=== PATIENT | male | born 1950 | race Caucasian/White ===

== ENCOUNTER → 2017-02-03 09:24 | Outpatient (CLI) | payer MEDICARE, BC ==
[2015-03-17 18:20] VITALS: BMI 31.6
[~2017-02-03 09:24] MED LIST: BAYER CHEWABLE81 MG PO; BYSTOLIC10 MG PO; ELIQUIS2.5 MG PO; GLIPIZIDE10 MG PO; GLUCOTROL XL 5 M5 MG PO; JANUMET XR 1001 EACH PO; LANTUS SOL100 UNIT/1 SQ; LISINOPRIL10 MG PO; LYRICA75 MG PO; MOBIC7.5 MG PO; NORCO 7.5/325 T1 TA1 PO; NORVASC5 MG PO; PERCOCET 10/3251 TA1 PO; PRAVACHOL40 MG PO; SYNTHROID150 MCG PO; ULTRAM50 MG PO; VIMOVO 375-201 EACH PO
[2017-02-04 06:15] LABS: IMMUNOGLOBULIN G 867 mg/dL (700-1600)
[2017-02-08 10:18] LABS: ANTIGLIADIN IGA 5 units (0-19); ANTIGLIADIN IGG 2 units (0-19)
== END | disposition home or self-care (01) ==
LOC: D.LAB 09:24
PROVIDERS: Internal Medicine Gastroenterology
DX: D72.820 Lymphocytosis (symptomatic) (principal)

== ENCOUNTER → 2017-02-16 08:58 | Outpatient (CLI) | payer MEDICARE, BC ==
[2015-03-17 18:20] VITALS: BMI 31.6
== END | disposition home or self-care (01) ==
LOC: D.RAD 08:58
DX: R13.10 Dysphagia, unspecified (principal)

== ENCOUNTER 2019-07-05 08:18 | Inpatient (IN) | payer MEDICARE, BC ==
[~2019-07-05] VITALS: Ht 188 cm; Wt 111.1 kg
[2019-07-05] VITALS (12 sets, daily range): BP systolic 102–135; BP diastolic 56–89; Ht 188 cm; Wt 111.1 kg
[2019-07-05 08:37] LABS: BASOPHILS 0.6 % (0-2); EOSINOPHILS 2.2 % (0-7); HEMATOCRIT 41.4 % (42.0-54.0); HEMOGLOBIN 14.3 g/dL (13.5-17.5); IMMATURE GRANULOCYTES 0.3 % (0-5); LYMPHOCYTES 24.7 % (15-50); MCH 34.7 pg (26.0-34.0); MCHC 34.5 g/dL (31.0-37.0); MCV 100.5 fL (80.0-100.0); MEAN PLATELET VOLUME 9.8 fL (7.4-10.4); MONOCYTES 5.2 % (2-11); PLATELET COUNT 265 10x3/uL (130-400); RBC 4.12 10x6/uL (4.20-6.10); RDW 12.5 % (11.5-14.5); WBC 6.7 10x3/uL (4.8-10.8)
[2019-07-05 08:44] LABS: CALC OSMOLALITY 275 mosm/kg (275-300); CALCIUM 10.1 mg/dL (8.5-10.1); CARBON DIOXIDE 23.3 mmol/L (21.0-32.0); CHLORIDE - SERUM 98 mmol/L (98-107); CREATININE - SERUM 1.8 mg/dL (0.6-1.3); GLUCOSE 90 mg/dL (74-106); POTASSIUM - SERUM 4.7 mmol/L (3.5-5.1); SODIUM 135 mmol/L (136-145); UREA NITROGEN 30 mg/dL (7-18); eGFR NON AFRICAN AMERICAN 40 mL/min (90-120)
[2019-07-05 08:45] LABS: APTT 27.6 SECONDS (22.8-39.4); INR 0.99 (0.85-1.17); PROTIME 13.1 SECONDS (11.6-15.0)
[2019-07-05 08:59] LABS: ALBUMIN 4.3 g/dL (3.4-5.0); ALKALINE PHOSPHATASE 86 U/L (30-120); ALT (SGPT) 51 U/L (10-68); BILIRUBIN - TOTAL 0.48 mg/dL (0.2-1.3); CKMB 3.4 U/L (0.0-3.6); CREATINE KINASE 167 UL (21-232); MAGNESIUM - SERUM 1.4 mg/dL (1.8-2.4); PROTEIN - SERUM 7.5 g/dL (6.4-8.2); THYROID STIMULATING HORMONE 0.29 uIU/mL (0.36-3.74)
[2019-07-05 09:02] LABS: TROPONIN-I < 0.017 ng/mL (0.000-0.060)
--- NOTE | 2019-07-05 09:09 | NUR ---
RTN FROM CT. RESTING COMFORTABLY IN BED. NO C/O
--- NOTE | 2019-07-05 09:59 | NUR ---
REPORT CALLED TO FLAQUITO YOUNG
[2019-07-05] MEDS ORDERED: LOPRESSOR25 MG PO (10:36)
[2019-07-05] MEDS ORDERED: GLUCOTROL 5 MG T5 MG PO (10:36)
[2019-07-05] MEDS ORDERED: GLUCOPHAGE1000 MG PO (10:36)
[2019-07-05] MEDS ORDERED: MOBIC7.5 MG PO (10:37)
[2019-07-05] MEDS ORDERED: IBUPROFEN800 MG PO (10:38)
[2019-07-05] MEDS ORDERED: PEPCID AC20 MG PO (10:38)
[2019-07-05] MEDS ORDERED: LIPITOR20 MG PO (10:38)
[2019-07-05] MEDS ORDERED: LEVOTHYROXINE150 MCG PO (10:39)
--- NOTE | 2019-07-05 19:35 | NUR ---
EVENING ROUNDS COMPLETED. AAOX4, ASSIST PT UP TO RESTROOM, PT HR WENT UP 140'S A-FIB. OTHERWISE AFVSS. PT DENIES PAIN OR SOB. PT DENIES ANY FURTHER NEEDS AT THIS TIME. WILL CTM.
[2019-07-06] VITALS: BP 120/76
[2019-07-06 04:23] LABS: BASOPHILS 0.8 % (0-2); HEMATOCRIT 37.2 % (42.0-54.0); HEMOGLOBIN 12.5 g/dL (13.5-17.5); IMMATURE GRANULOCYTES 0.2 % (0-5); LYMPHOCYTES 24.4 % (15-50); MCH 34.5 pg (26.0-34.0); MCHC 33.6 g/dL (31.0-37.0); MEAN PLATELET VOLUME 9.7 fL (7.4-10.4); MONOCYTES 8.1 % (2-11); NEUTROPHILS 61.5 % (40-80); RBC 3.62 10x6/uL (4.20-6.10); RDW 12.9 % (11.5-14.5)
[2019-07-06 04:29] LABS: MCV 102.8 fL (80.0-100.0); PLATELET COUNT 169 10x3/uL (130-400); WBC 4.8 10x3/uL (4.8-10.8)
[2019-07-06 04:37] LABS: ANION GAP 14.1 mmol/L (8-16); CALCIUM 8.8 mg/dL (8.5-10.1); CARBON DIOXIDE 24.1 mmol/L (21.0-32.0); CREATININE - SERUM 1.5 mg/dL (0.6-1.3); MAGNESIUM - SERUM 1.6 mg/dL (1.8-2.4)
[2019-07-06 05:01] LABS: POTASSIUM - SERUM 5.2 mmol/L (3.5-5.1)
[2019-07-06 08:48] VITALS: BP 151/86
--- NOTE | 2019-07-06 10:17 | MORECARE ---
CASE MANAGEMENT DISCHARGE SUMMARY PATIENT: ELVIN FUENTES UNIT: [id number] ADM DATE: 07/05/19 AGE: 68 : 49 SEX: M ROOM/BED: D.6944 AUTHOR: ODALIS,DOC PHYSICIAN: REFERRING PHYSICIAN: ANISH ESPINOZA MD DATE OF SERVICE: 07/06/19 Discharge Plan Patient Name: ELVIN FUENTES Facility: [facility]:[place] : 1950 Planned Disposition: Home Anticipated Discharge Date: Discharge Date: Expected LOS: Initial Reviewer: [id number] Initial Review Date: 07/06/2019 Generated: 07/06/19 11:17 am Comments DCP- Discharge Planning Updated by [id number]: Krzysztof Brand on 07/06/19 9:[address] Patient Name: ELVIN FUENTES Admission Status: ER Accout number: [id number] Admission Date: 07-05-2019 : 1950 Admission Diagnosis: Attending: ANISH ESPINOZA Current LOS: 1 Anticipated DC Date: Planned Disposition: Home Primary Insurance: MEDICARE A & B Discharge Planning Comments: CM MET WITH PT IN ROOM TO DISCUSS DISCHARGE PLANNING AND NEEDS. PT REPORTS LIVING AT HOME INDEPENDENTLY AND ALONE. PT HAS CANE AND WALKER WITH NO MEDICAL EQUIPMENT PROVIDER PREFERNCE. PT HAS NO OUTSIDE SERVICES ASSISTING IN THE HOME. CM DISCUSSED AVAILABILITY OF HOME HEALTH, REHAB SERVICES AND MEDICAL EQUIPMENT. PT DENIES DISCHARGE NEEDS, REPORTS HIS EX WILL PICK HIM UP FOR DISCHARGE HOME. PT PLANS TO DISCHARGE HOME ALONE, HAS NO ANTICIPATED DISCHARGE NEEDS, FAMILY TO TRANSPORT HOME AT DISCHARGE. CM TO FOLLOW AND ASSIST IF NEEDED. Therapeutic Recreation Director: Krzysztof Brand DCPIA - Discharge Planning Initial Assessment Updated by [email or web address]: Krzysztof Brand on 07/06/19 10:12 am * Is the patient Alert and Oriented? Yes * How many steps to enter\exit or inside your home? * PCP DR. MCKINNON * Pharmacy [facility] [address] * Preadmission Environment Home Alone * ADLs Independent * Equipment Cane Walker * Other Equipment NO MEDICAL EQUIPMENT PROVIDER PREFERENCE * List name and contact numbers for known caregivers / representatives who currently or will assist patient after discharge: SUZY FUENTES, EX SPOUSE, * Verbal permission to speak to the caregivers and representatives has been obtained from the patient. N/A * Community resources currently utilized None * Please name any agencies selected above. NONE * Additional services required to return to the preadmission environment? No * Can the patient safely return to the preadmission environment? Yes * Has this patient been hospitalized within the prior 30 days at any hospital? No Patient Name: ELVIN FUENTES Page [id number] at 1017 All edits/amendments must be made on the electronic document DICTATION DATE: 07/06/19 1017 MAINTENANCE MECHANIC TELEPHONE: RAYMOND 07/06/19 1017 RPT#: [id number] DC DATE: STATUS: ADM IN [facility] [address] [place] [address] END OF REPORT
--- NOTE | 2019-07-06 10:31 | MORECARE ---
CASE MANAGEMENT DISCHARGE SUMMARY PATIENT: ELVIN FUENTES UNIT: [id number] ADM DATE: 07/05/19 AGE: 68 : 49 SEX: M ROOM/BED: D.0864 AUTHOR: ODALIS,DOC PHYSICIAN: REFERRING PHYSICIAN: ANISH ESPINOZA MD DATE OF SERVICE: 07/06/19 Discharge Plan Patient Name: ELVIN FUENTES Facility: [facility]:[place] : 1950 Planned Disposition: Home Anticipated Discharge Date: Discharge Date: Expected LOS: Initial Reviewer: [id number] Initial Review Date: 07/06/2019 Generated: 07/06/19 11:31 am Comments DCP- Discharge Planning Updated by [email or web address]: Krzysztof Brand on 07/06/19 9:[address] Patient Name: ELVIN FUENTES Admission Status: ER Accout number: [id number] Admission Date: 07-05-2019 : 1950 Admission Diagnosis: Attending: ANISH ESPINOZA Current LOS: 1 Anticipated DC Date: Planned Disposition: Home Primary Insurance: MEDICARE A & B Discharge Planning Comments: CM MET WITH PT IN ROOM TO DISCUSS DISCHARGE PLANNING AND NEEDS. PT REPORTS LIVING AT HOME INDEPENDENTLY AND ALONE. PT HAS CANE AND WALKER WITH NO MEDICAL EQUIPMENT PROVIDER PREFERNCE. PT HAS NO OUTSIDE SERVICES ASSISTING IN THE HOME. CM DISCUSSED AVAILABILITY OF HOME HEALTH, REHAB SERVICES AND MEDICAL EQUIPMENT. PT DENIES DISCHARGE NEEDS, REPORTS HIS EX WILL PICK HIM UP FOR DISCHARGE HOME. PT PLANS TO DISCHARGE HOME ALONE, HAS NO ANTICIPATED DISCHARGE NEEDS, FAMILY TO TRANSPORT HOME AT DISCHARGE. CM TO FOLLOW AND ASSIST IF NEEDED. Pallet Assembler: Krzysztof Brand DCPIA - Discharge Planning Initial Assessment Updated by [id number]: Krzysztof Brand on 07/06/19 10:12 am * Is the patient Alert and Oriented? Yes * How many steps to enter\exit or inside your home? * PCP DR. MCKINNON * Pharmacy [facility] [address] * Preadmission Environment Home Alone * ADLs Independent * Equipment Cane Walker * Other Equipment NO MEDICAL EQUIPMENT PROVIDER PREFERENCE * List name and contact numbers for known caregivers / representatives who currently or will assist patient after discharge: SUZY FUENTES, EX SPOUSE, * Verbal permission to speak to the caregivers and representatives has been obtained from the patient. N/A * Community resources currently utilized None * Please name any agencies selected above. NONE * Additional services required to return to the preadmission environment? No * Can the patient safely return to the preadmission environment? Yes * Has this patient been hospitalized within the prior 30 days at any hospital? No Last DP export: 07/06/19 9:17 a Patient Name: ELVIN FUENTES Page [id number] at 1031 All edits/amendments must be made on the electronic document DICTATION DATE: 07/06/19 1031 ADULT REMEDIAL EDUCATION INSTRUCTOR: RAYMOND 07/06/19 1031 RPT#: [id number] DC DATE: STATUS: ADM IN [facility] [address] [place] [address] END OF REPORT
--- NOTE | 2019-07-06 12:09 | NUR ---
PT REFUES TO WEAR SCDs
[2019-07-06 17:01] VITALS: BP 147/93
--- NOTE | 2019-07-06 19:30 | NUR ---
REPORT RECIEVED AND INITIAL ROUNDS COMPLETED. PT ALERT/ORIENTED AND RESTING IN BED. NONLABORED RESPIRATIONS ON ROOM AIR. IV TO LEFT FOREARM WITH NS @ 100ML/HR AND CARDIZEM AT 5ML/HR. ALSO HAS PIV TO RIGHT A/C THAT IS SALINE LOCKED. CAF/70'S PER TELEMETRY. INSTRUCT ON NPO AFTER MIDNIGHT FOR CARDIOLYTE STRESS TEST IN AM. CALL LIGHT IN REACH. CPOC.
[2019-07-06 21:00] VITALS: BP 157/92
--- NOTE | 2019-07-06 22:00 | NUR ---
ALL BEDTIME MEDS GIVEN. PT REFUSED FSBS. STATES HE KNOWS IF HE NEEDS TO BE CHECKED AND HE IS OK. IVF INFUSING. CARDIZEM DRIP INFUSING. CAF 72 PER TELEMETRY.
--- NOTE | 2019-07-07 07:15 | NUR ---
RECEIVED PT IN BED AAOX4 RESP UNLABORED SKIN W/D COLOR WNL DENIES ANY PAIN OR NEEDS AT THIS TIME NAD NOTED
[2019-07-07 10:41] VITALS: BP 110/56
[2019-07-07] MEDS ORDERED: ELIQUIS5 MG PO (11:45)
[2019-07-07] MEDS ORDERED: LEVOTHYROXINE100 MCG PO (11:46)
[2019-07-07 12:22] VITALS: BP 148/81
--- NOTE | 2019-07-07 13:50 | NUR ---
REVIEWED DISCHARGE INSTRUCTIONS WITH PT STATES UNDERSTANDING COPY GIVEN DCD SALINE LOCKS TO RAC AND LAC WITH IV CATHETERS INTACT SITES WITH NO REDNESS OR EDEMA PT DISCHARGED HOME IN STABLE CONDITION WITH ALL PERSONAL BELONGINGS LEFT UNIT VIA W/C
--- NOTE | 2019-07-07 16:12 | MORECARE ---
CASE MANAGEMENT DISCHARGE SUMMARY PATIENT: ELVIN FUENTES UNIT: [id number] ADM DATE: 07/05/19 AGE: 68 : 49 SEX: M ROOM/BED: D.2114 AUTHOR: ODALIS,DOC PHYSICIAN: REFERRING PHYSICIAN: ANISH ESPINOZA MD DATE OF SERVICE: 07/07/19 Discharge Plan Patient Name: ELVIN FUENTES Facility: [facility]:[place] : 1950 Planned Disposition: Home Anticipated Discharge Date: Discharge Date: 07/07/2019 Expected LOS: Initial Reviewer: [id number] Initial Review Date: 07/06/2019 Generated: 07/07/19 5:12 pm Comments DCP- Discharge Planning Updated by [email or web address]: Kayleen Ware on 07/07/19 3:[address] Patient Name: ELVIN FUENTES Encounter No: [id number] : 1950 Primary Insurance: MEDICARE A & B Anticipated DC Date: Planned Disposition: Home External Planned Provider: : DCP follow-up note: PT PLANS TO DISCHARGE HOME ALONE, HAS NO ANTICIPATED DISCHARGE NEEDS, FAMILY TO TRANSPORT HOME AT DISCHARGE. Kayleen Ware MSN,RN,CM DCP- Discharge Planning Updated by [id number]: Krzysztof Brand on 07/06/19 9:[address] Patient Name: ELVIN FUENTES Admission Status: ER Accout number: [id number] Admission Date: 07-05-2019 : 1950 Admission Diagnosis: Attending: ANISH ESPINOZA Current LOS: 1 Anticipated DC Date: Planned Disposition: Home Primary Insurance: MEDICARE A & B Discharge Planning Comments: CM MET WITH PT IN ROOM TO DISCUSS DISCHARGE PLANNING AND NEEDS. PT REPORTS LIVING AT HOME INDEPENDENTLY AND ALONE. PT HAS CANE AND WALKER WITH NO MEDICAL EQUIPMENT PROVIDER PREFERNCE. PT HAS NO OUTSIDE SERVICES ASSISTING IN THE HOME. CM DISCUSSED AVAILABILITY OF HOME HEALTH, REHAB SERVICES AND MEDICAL EQUIPMENT. PT DENIES DISCHARGE NEEDS, REPORTS HIS EX WILL PICK HIM UP FOR DISCHARGE HOME. PT PLANS TO DISCHARGE HOME ALONE, HAS NO ANTICIPATED DISCHARGE NEEDS, FAMILY TO TRANSPORT HOME AT DISCHARGE. CM TO FOLLOW AND ASSIST IF NEEDED. Video Journalist: Krzysztof Brand DCPIA - Discharge Planning Initial Assessment Updated by [id number]: Krzysztof Brand on 07/06/19 10:12 am * Is the patient Alert and Oriented? Yes * How many steps to enter\exit or inside your home? * PCP DR. MCKINNON * Pharmacy [facility] ON [address] * Preadmission Environment Home Alone * ADLs Independent * Equipment Cane Walker * Other Equipment NO MEDICAL EQUIPMENT PROVIDER PREFERENCE * List name and contact numbers for known caregivers / representatives who currently or will assist patient after discharge: SUZY FUENTES, EX SPOUSE, * Verbal permission to speak to the caregivers and representatives has been obtained from the patient. N/A * Community resources currently utilized None * Please name any agencies selected above. NONE * Additional services required to return to the preadmission environment? No * Can the patient safely return to the preadmission environment? Yes * Has this patient been hospitalized within the prior 30 days at any hospital? No Last DP export: 07/06/19 9:31 a Patient Name: ELVIN FUENTES Page [id number] at 1612 All edits/amendments must be made on the electronic document DICTATION DATE: 07/07/19 1612 BARREL CHARRER HELPER: RAYMOND 07/07/19 1612 RPT#: [id number] DC DATE:07/07/19 STATUS: DIS IN [facility] [address] [place] [address] END OF REPORT
--- NOTE | 2019-07-08 17:43 | ST ---
PATIENT:ELVIN FUENTES MEDICAL RECORD: [id number] SEX: M [facility] #: ADMISSION DATE: 07/05/19 AGE OF PATIENT: 68 REFERRING PHYSICIAN: INTERPRETING PHYSICIAN: MARCELLA MCWILLIAMS MD DATE OF SERVICE: 07/07/2019 PROCEDURE: Lexiscan directed nuclear stress test. PROCEDURE IN DETAIL: The patient was brought into the nuclear catheterization lab. Placed in a supine position on the catheterization table. The patient then had Lexiscan administered per standard protocol. We monitored the patient's rhythm and blood pressure during the procedure. The patient tolerated the procedure without complications. FINDINGS: The patient's ejection fraction is 40% to 45%. No distinct wall motion abnormalities. There was a mild apical lateral defect that was mild in intensity and [id number] in distribution. This was reversible. IMPRESSION: Abnormal nuclear stress test with mild cardiomyopathy with ejection fraction 40% to 45%. RECOMMENDATIONS: At this point in time, depending on clinical situation, medical therapy would be reasonable, symptom directed. Aggressive secondary risk factor modification. Aggressive rate control given the patient is in AFib. Heart failure management. ANA inhibitor and beta blockers. Depending on clinical situation, the patient has considerable angina and is not controlled with medical management, it may be reasonable to consider catheter directed angiography. TRANSINT:[id number] Voice Confirmation ID: [id number] DOCUMENT ID: [id number] MARCELLA MCWILLIAMS MD at 1743 CC: [id number] DICTATION DATE: 07/07/19 1038 FUMIGATOR AND STERILIZER: 07/07/19 1755 DIS IN 07/07/19 [place] [id number] [place] [id number]
--- NOTE | 2019-07-09 08:57 | MORECARE ---
CASE MANAGEMENT DISCHARGE SUMMARY PATIENT: ELVIN FUENTES UNIT: [id number] ADM DATE: 07/05/19 AGE: 68 : 49 SEX: M ROOM/BED: D.2114 AUTHOR: ODALIS,DOC PHYSICIAN: REFERRING PHYSICIAN: ANISH ESPINOZA MD DATE OF SERVICE: 07/09/19 Discharge Plan Patient Name: ELVIN FUENTES Facility: [facility]:[place] : 1950 Planned Disposition: Home Anticipated Discharge Date: Discharge Date: 07/07/2019 Expected LOS: Initial Reviewer: [id number] Initial Review Date: 07/06/2019 Generated: 07/09/19 9:57 am Comments DCP- Discharge Planning Updated by [email or web address]: Kayleen Ware on 07/09/19 7:[address] Patient Name: ELVIN FUENTES Encounter No: [id number] : 1950 Primary Insurance: MEDICARE A & B Anticipated DC Date: Planned Disposition: Home External Planned Provider: : DCP follow-up note: PT PLANS TO DISCHARGE HOME ALONE, HAS NO ANTICIPATED DISCHARGE NEEDS, FAMILY TO TRANSPORT HOME AT DISCHARGE. DCC IMM provided. Signed copy placed on chart. Kayleen Ware MSN,RN,CM DCP- Discharge Planning Updated by [id number]: Krzysztof Brand on 07/06/19 9:[address] Patient Name: ELVIN FUENTES Admission Status: ER Accout number: [id number] Admission Date: 07-05-2019 : 1950 Admission Diagnosis: Attending: ANISH ESPINOZA Current LOS: 1 Anticipated DC Date: Planned Disposition: Home Primary Insurance: MEDICARE A & B Discharge Planning Comments: CM MET WITH PT IN ROOM TO DISCUSS DISCHARGE PLANNING AND NEEDS. PT REPORTS LIVING AT HOME INDEPENDENTLY AND ALONE. PT HAS CANE AND WALKER WITH NO MEDICAL EQUIPMENT PROVIDER PREFERNCE. PT HAS NO OUTSIDE SERVICES ASSISTING IN THE HOME. CM DISCUSSED AVAILABILITY OF HOME HEALTH, REHAB SERVICES AND MEDICAL EQUIPMENT. PT DENIES DISCHARGE NEEDS, REPORTS HIS EX WILL PICK HIM UP FOR DISCHARGE HOME. PT PLANS TO DISCHARGE HOME ALONE, HAS NO ANTICIPATED DISCHARGE NEEDS, FAMILY TO TRANSPORT HOME AT DISCHARGE. CM TO FOLLOW AND ASSIST IF NEEDED. Professional Engineer: Krzysztof Brand DCPIA - Discharge Planning Initial Assessment Updated by [email or web address]: Krzysztof Brand on 07/06/19 10:12 am * Is the patient Alert and Oriented? Yes * How many steps to enter\exit or inside your home? * PCP DR. MCKINNON * Pharmacy [facility] ON [address] * Preadmission Environment Home Alone * ADLs Independent * Equipment Cane Walker * Other Equipment NO MEDICAL EQUIPMENT PROVIDER PREFERENCE * List name and contact numbers for known caregivers / representatives who currently or will assist patient after discharge: SUZY FUENTES, EX SPOUSE, * Verbal permission to speak to the caregivers and representatives has been obtained from the patient. N/A * Community resources currently utilized None * Please name any agencies selected above. NONE * Additional services required to return to the preadmission environment? No * Can the patient safely return to the preadmission environment? Yes * Has this patient been hospitalized within the prior 30 days at any hospital? No Last DP export: 07/07/19 3:12 p Patient Name: ELVIN FUENTES Page 12208 at 0857 All edits/amendments must be made on the electronic document DICTATION DATE: 07/09/19856 BENCH MECHANIC: RAYMOND 07/09/19856 RPT#: [id number] DC DATE:07/07/19 STATUS: DIS IN [facility] [address] [place] [address] END OF REPORT
--- NOTE | 2019-07-09 09:05 | MORECARE ---
CASE MANAGEMENT DISCHARGE SUMMARY PATIENT: ELVIN FUENTES UNIT: [id number] ADM DATE: 07/05/19 AGE: 68 : 49 SEX: M ROOM/BED: D.2114 AUTHOR: ODALIS,DOC PHYSICIAN: REFERRING PHYSICIAN: ANISH ESPINOZA MD DATE OF SERVICE: 07/09/19 Discharge Plan Patient Name: ELVIN FUENTES Facility: [facility]:[place] : 1950 Planned Disposition: Home Anticipated Discharge Date: Discharge Date: 07/07/2019 Expected LOS: Initial Reviewer: [id number] Initial Review Date: 07/06/2019 Generated: 07/09/19 10:04 am Comments DCP- Discharge Planning Updated by [email or web address]: Kayleen Ware on 07/09/19 7:[address] Patient Name: ELVIN FUENTES Encounter No: [id number] : 1950 Primary Insurance: MEDICARE A & B Anticipated DC Date: Planned Disposition: Home External Planned Provider: : DCP follow-up note: PT PLANS TO DISCHARGE HOME ALONE, HAS NO ANTICIPATED DISCHARGE NEEDS, FAMILY TO TRANSPORT HOME AT DISCHARGE. DCC IMM provided. Signed copy placed on chart. Kayleen Ware MSN,RN,CM DCP- Discharge Planning Updated by [id number]: Krzysztof Brand on 07/06/19 9:[address] Patient Name: ELVIN FUENTES Admission Status: ER Accout number: [id number] Admission Date: 07-05-2019 : 1950 Admission Diagnosis: Attending: ANISH ESPINOZA Current LOS: 1 Anticipated DC Date: Planned Disposition: Home Primary Insurance: MEDICARE A & B Discharge Planning Comments: CM MET WITH PT IN ROOM TO DISCUSS DISCHARGE PLANNING AND NEEDS. PT REPORTS LIVING AT HOME INDEPENDENTLY AND ALONE. PT HAS CANE AND WALKER WITH NO MEDICAL EQUIPMENT PROVIDER PREFERNCE. PT HAS NO OUTSIDE SERVICES ASSISTING IN THE HOME. CM DISCUSSED AVAILABILITY OF HOME HEALTH, REHAB SERVICES AND MEDICAL EQUIPMENT. PT DENIES DISCHARGE NEEDS, REPORTS HIS EX WILL PICK HIM UP FOR DISCHARGE HOME. PT PLANS TO DISCHARGE HOME ALONE, HAS NO ANTICIPATED DISCHARGE NEEDS, FAMILY TO TRANSPORT HOME AT DISCHARGE. CM TO FOLLOW AND ASSIST IF NEEDED. Help Desk Support: Krzysztof Brand DCPIA - Discharge Planning Initial Assessment Updated by [email or web address]: Krzysztof Brand on 07/06/19 10:12 am * Is the patient Alert and Oriented? Yes * How many steps to enter\exit or inside your home? * PCP DR. MCKINNON * Pharmacy [facility] ON [address] * Preadmission Environment Home Alone * ADLs Independent * Equipment Cane Walker * Other Equipment NO MEDICAL EQUIPMENT PROVIDER PREFERENCE * List name and contact numbers for known caregivers / representatives who currently or will assist patient after discharge: SUZY FUENTES, EX SPOUSE, * Verbal permission to speak to the caregivers and representatives has been obtained from the patient. N/A * Community resources currently utilized None * Please name any agencies selected above. NONE * Additional services required to return to the preadmission environment? No * Can the patient safely return to the preadmission environment? Yes * Has this patient been hospitalized within the prior 30 days at any hospital? No Coverage Notice Reviewer: [id number] Isis Ware Notice Issued Date-Time: 07/07/2019 13:00 Notice Type: IM Discharge Notice Notice Delivered To: Patient Relationship to Patient: Bird Tender Name: Delivery Method: HAND - Hand Delivered [place] Days: Prior Verbal Notification: Recipient Understood Notice: Yes Recipient Signature: Yes Med Rec Note Co-signed by Attending: Coverage Notice Comment: Last DP export: 07/09/19 7:57 a Patient Name: ELVIN FUENTES Page 25702 at 0905 All edits/amendments must be made on the electronic document DICTATION DATE: 07/09/19903 THERAPEUTIC RECREATION ASSISTANT: RAYMOND 07/09/19903 RPT#: [id number] DC DATE:07/07/19 STATUS: DIS IN [facility] [address] [place] [address] END OF REPORT
== END 2019-07-07 13:10 | disposition home or self-care (01) | DRG 69 ==
LOC: D.ER 08:18 → D.M2 09:25
PROVIDERS: Emergency Medicine; ADMIT Internal Medicine Nephrology; ATTEND Internal Medicine Nephrology
DX: G45.9 Transient cerebral ischemic attack, unspecified (principal); I48.19 Other persistent atrial fibrillation; N17.9 Acute kidney failure, unspecified; E87.1 Hypo-osmolality and hyponatremia; F17.203 Nicotine dependence unspecified, with withdrawal; E83.42 Hypomagnesemia; E03.9 Hypothyroidism, unspecified; E11.42 Type 2 diabetes mellitus with diabetic polyneuropathy; E78.5 Hyperlipidemia, unspecified

== ENCOUNTER 2019-09-11 11:20 | Outpatient (CLI) | payer MEDICARE, BC ==
[~2019-09-11] VITALS: Ht 188 cm; Wt 107.7 kg
--- NOTE | ~2019-09-11 | HEMODYNAMI ---
PATIENT:ELVIN FUENTES MEDICAL RECORD: [id number] : 48 LOCATION:[facility] ADMISSION DATE: 09/11/19 Generatedon:09/11/201916:16 Patient name: ELVIN FUENTES Patient #: [id number] SSN: : [birth year] Date of study: 09/11/2019 Page: Of Hemodynamic Procedure Report Patient Data Patient Demographics Procedure consent was obtained First Name: ELVIN Gender: Male Last Name: ALFREDO : 1950 [facility] Initial: E Age: 68 year(s) Patient #: [id number] Race: Unknown Ethnicity: or Additional ID: [id number] Contact details Address: [address] [address] State: [place] City: [place] Zip code: [address] Past Medical History Allergies: No known allergies Admission Admission Data Admission Date: 09/11/2019 Admission Time: 11:20 Arrival Date: 09/11/2019 Arrival Time: 0:00 Height (in.): 73.62 BSA: 2.33 (m2) Height (cm.): 187 BMI: 30.88 (kg/m2) Weight (lbs.): 238.1 Weight (kg.): 108 Lab Results Lab Result Date: 09/11/2019 Lab Result Time: 0:00 Biochemistry Name Units Result Min Max BUN mg/dl 39 --(----)-* 7 18 Creatinine mg/dl 2.2 --(----)-* 0.6 1.3 CBC Name Units Result Min Max Hematocrit % 41.4 -*(----)-- 42 54 Hemoglobin g/dl 14.2 --(*---)-- 13.5 17.5 Procedure Procedure Types Cath Procedure Diagnostic Procedure PPM/ICD PPM Dual Implant Sedation Charges Moderate Sedation up to 30 minutes Procedure Description Procedure Date Procedure Date: 09/11/2019 Procedure Start Time: 15:41 Procedure End Time: 16:12 Procedure Staff Name Function Chance Tavarez MD Performing Physician Willie Deleon MD Assisting physician Roseanne Cedeño RT Monitor Kate Marie RT Scrub Madelaine Cruz RN Nurse Procedure Data Cath Procedure Fluoroscopy Diagnostic fluoroscopy Total fluoroscopy Time: 1.4 time: 1.4 min min Diagnostic fluoroscopy Total fluoroscopy dose: 0 dose: 0 mGy mGy Estimated blood loss: 10 ml Procedure Complications No complications Procedure Medications Medication Administration Route Dosage 0.9% NaCl I.V. 100 ml/hr Oxygen etCO2 Nasal cannula 2 l/min Lidocaine 1% added to field 20 Ancef (1Gm/50ml NS) I.V.P.B 1 g Ancef Irrigation Topical 1 g (1gm/500ml NS) Versed I.V. 2 mg Fentanyl I.V. 50 mcg Versed I.V. 2 mg Fentanyl I.V. 50 mcg Hemodynamics Rest BSA: 2.33 (m2) HGB: 14.2 (g/dl) O2 Consumption: Estimated: 310.81 (ml/min) O2 Co nsumption indexed: Estimated:133.39 (ml/min/m) Heart Rate: 117 (bpm) Snapshots Pre Cath Intra NCS Post Cath Vital Signs Time Heart Resp SPO2 etCO2 NIBP (mmHg) Rhythm Pain Sedation Rate (ipm) (%) (mmHg) Status Level (bpm) 15:22:50 109 17 97 29 Measuring A-Flutter 0 (11) 10(A) , No pain 15:23:34 104 19 98 29 143/104(129) A-Flutter 0 (11) 10(A) , No pain 15:27:43 110 18 96 29.2 133/101(121) A-Flutter 0 (11) 10(A) , No pain 15:31:49 104 20 98 31.5 131/96(104) A-Flutter 0 (11) 10(A) , No pain 15:35:53 105 15 97 31.5 139/96(112) A-Flutter 0 (11) 10(A) , No pain 15:39:54 90 17 98 32.3 129/96(111) A-Flutter 0 (11) 10(A) , No pain 15:44:00 121 23 98 31.5 124/92(106) A-Flutter 0 (11) 10(A) , No pain 15:48:04 109 18 97 32.3 118/88(99) A-Flutter 0 (11) 10(A) , No pain 15:52:08 113 17 97 36.8 137/89(110) A-Flutter 0 (11) 9(A) , No pain 15:56:16 118 19 97 30.8 124/97(107) A-Flutter 0 (11) 9(A) , No pain 16:00:19 115 16 98 30.8 129/92(109) A-Flutter 0 (11) 9(A) , No pain 16:04:25 118 17 97 30.8 134/93(107) A-Flutter 0 (11) 10(A) , No pain 16:08:33 118 16 94 33 132/87(95) A-Flutter 0 (11) 10(A) , No pain 16:12:39 112 18 96 28.5 144/96(115) A-Flutter 0 (11) 10(A) , No pain Medications Time Medication Route Dose Verified Delivered Reason Notes Effectiv eness by by 15:21:12 0.9% NaCl I.V. 100 Chance Madelaine used for ml/hr Corby Anthony procedure MD [place] 15:21:18 Oxygen etCO2 2 Chance Madelaine used for Nasal l/min Corby Anthony procedure cannula MD [place] 15:21:27 Lidocaine added 20ml Willie Tapia for local 1% to vial Pancho Deleon MD anesthetic field x 2 15:21:37 Ancef I.V.P.B 1 g Willie Zavaleatyla used for (1Gm/50ml Pancho Anthony procedure NS) MD [place] 15:21:48 Ancef Topical 1 g Willie Madelaine used for Irrigation Pancho Anthony procedure (1gm/500ml MD [place] NS) 15:41:28 Versed I.V. 2 mg Chance Madelaine for Corby Anthony sedation MD [place] 15:42:01 Fentanyl I.V. 50 Chance Madelaine for mcg Corby Anthony sedation MD [place] 15:48:47 Versed I.V. 2 mg Chance Madelaine for Corby Anthony sedation MD [place] 15:48:55 Fentanyl I.V. 50 Chance Zavaletayla for mcg Corby Anthony sedation MD [facility]corporate secretary Log Time Note 15:03:38 Informed consent obtained and on chart 15:04:06 Procedure Status PPM/ Gen Change/ Lead Revision/ Temp. 15:04:17 Madelaine Cruz RN sent for patient. Start room use. 15:04:18 Time tracking: Regular hours (M-F 7:00 - 5:00) 15:04:21 Plan of Care:Hemodynamics will remain stable., Cardiac rhythm will remain stable., Comfort level will be maintained., Respiratory function will remain adequate., Patient/ family verbilizes understanding of procedure., Procedure tolerated without complication., Recovers from procedure without complications.. 15:06:06 H&P Date Dictated: 09/06/2019 Within 30 days and on chart., H&P Addendum completed by physician on day of procedure. (MUST COMPLETE FOR ALL OUTPATIENTS). 15:07:07 Patient allergic to No known allergies 15:08:31 Patient Weight : 238.1 lbs 15:08:35 Patient Height : 73.62 inches 15:08:40 Arrival Date: 09/11/2019 12:00:00 AM 15:13:59 Patient received from Pre/Post Procedure Room to [facility] 3 Alert and oriented. Tansferred to table in Supine position. 15:14:00 Warm blankets applied, and funmi hugger turned on for patient comfort. 15:14:00 Correct patient and procedure confirmed by team. 15:14:01 ECG and BP/O2 sat monitors applied to patient. 15:21:01 Vital chart was started 15:21:12 0.9% NaCl 100 ml/hr I.V. was administered by Madelaine Cruz RN; used for procedure; Verbal order read back and verified. 15:21:18 Oxygen 2 l/min etCO2 Nasal cannula was administered by Madelaine Cruz RN; used for procedure; Verbal order read back and verified. 15:21:27 Lidocaine 1% 20ml vial x 2 added to field was administered by Willie Deleon MD; for local anesthetic; Verbal order read back and verified. 15:21:37 Ancef (1Gm/50ml NS) 1 g I.V.P.B was administered by Madelaine Cruz RN; used for procedure; Verbal order read back and verified. 15:21:48 Ancef Irrigation (1gm/500ml NS) 1 g Topical was administered by Madelaine Cruz RN; used for procedure; Verbal order read back and verified. 15::53 Baseline sample Acquired. 15:24:00 Rhythm: atrial fibrillation 15:24:01 Full Disclosure recording started 15:24:02 Pre-procedure instructions explained to patient. 15:24:02 Pre-op teaching completed and patient verbalized understanding. 15:24:04 Family in patients room. 15:24:05 Patient NPO since Midnight. 15:24:07 Is the patient allergic to Iodine/contrast media? No. 15:24:09 Is patient on blood thinner?Yes 15:24:34 ELIQUIS HELD FEW DAYS 15:24:48 Patient diabetic? No. 15:24:51 Previous problem with sedation/anesthesia? No ? 15:24:53 Snore? Yes 15:24:54 Sleep apnea? No 15:24:55 Deviated septum? No 15:24:56 Opens mouth fully? Yes 15:24:57 Sticks out tongue? Yes 15:25:04 Airway obstruction? No ASTHMA A CHILD 15:25:06 Dentures? No ? 15:25:13 IV patent on arrival in left hand with 0.9% NaCl at [facility]. 15:25:35 Lab Result : BUN 39 mg/dl 15:25:35 Lab Result : Creatinine 2.2 mg/dl 15:25:35 Lab Result : Hemoglobin 14.2 g/dl 15:25:35 Lab Result : Hematocrit 41.4 % 15::38 Lab results completed and on chart. 15:25:43 Left chest area was prepped with chlora-prep and draped in sterile fashion 15::44 Alarms reviewed by R. N. 15::44 Sharps counted by scrub and verified by R.N. 15:26:50 [employer] medical collections representative GERTRUDE REHMNA present for procedure. 15:27:00 Pre sharps counted by scrub and verified by RN: Sutures: 7; Sponges: 5; Stick needles: 2; Skin needles: 2; Blade: 1; Cautery: 1 15:27:02 Grounding pad site Left thigh. 15:27:03 Grounding pad site free from injury. 15::34 Baseline sample Acquired. 15::38 Use device set ANUJA PPM 15:28:56 2-0 Ticron Multipack ([id number]) opened to sterile field. 15:28:56 3-0 Vicryl Single Pack [id number] opened to sterile field. 15:28:57 5-0 Monocryl PS2 [id number] opened to sterile field. 15:28:57 Cautery Tip Marker Machine opened to sterile field. 15:28:58 Cautery Pushbutton Pencil opened to sterile field. 15:28:58 Mepilex Dressing ([id number]) opened to sterile field. 15:29:09 Immobilizer Large opened to sterile field. 15:34:54 Medtronic 4074-52 PPM Lead opened to sterile field. 15:34:55 Medtronic 4574-45 PPM Lead opened to sterile field. 15:35:[address] Generator [id number] opened to sterile field. 15:39:08 --------ALL STOP TIME OUT------ 15:39:08 Final Timeout: patient, procedure, and site verified with staff and physician. All members of the team are in agreement. 15:39:14 Left chest site verified by team. 15:39:17 Fire Safety Assessment: A--An alcohol-based skin anteseptic being used preoperatively., B--The operative or invasive procedure is being performed above the xiphoid process or in the oropharynx., C--Open oxygen or nitrous oxide is being used. 15:39:29 Physical assessment completed. ASA score P 2 - A patient with mild systemic disease as per Chance Tavarez MD. 15:39:43 Sedation plan: IV Moderate Sedation Medication:Versed, Fentanyl 15:40:53 Procedure started. 15:41:23 Lidocaine 1% was administered to left subclavicular area by Willie Deleon MD . 15:41:28 Versed 2 mg I.V. was administered by Madelaine Cruz RN; for sedation; Verbal order read back and verified. 15:42:01 Fentanyl 50 mcg I.V. was administered by Madelaine Cruz RN; for sedation; Verbal order read back and verified. 15:43:35 Incision made to left subclavicular area. 15:47:39 Generator pocket made/opened. 15:48:08 Left subclavian vein accessed with 9Fr Peel Away Sheath. 15:48:47 Versed 2 mg I.V. was administered by Madelaine Cruz RN; for sedation; Verbal order read back and verified. 15:48:55 Fentanyl 50 mcg I.V. was administered by Madelaine Cruz RN; for sedation; Verbal order read back and verified. 15:48:56 Ventricular lead inserted and advanced. 15:51:13 Ventricular lead positioned. 15:52:11 Ventricular lead tested. 15:52:33 Left subclavian vein accessed with 7Fr Peel Away Sheath. 15:53:07 Atrial lead inserted and advanced. 15:53:50 Atrial lead positioned. 15:53:56 Atrial lead tested. 15:54:11 Peel-a-way sheath was split and removed. 15:56:17 PPM Dual was attached to lead(s) and inserted into pocket. 15:56:27 PPM Dual was inserted subcutaneously to left chest. 15:56:53 Device pocket was irrigated with Ancef. 15:56:58 Atrial lead attachment was completed with 2-0 ticron. 15:57:08 Ventricular lead attachment was completed with 2-0 ticron. 15:57:10 Generator was sutured in place with 2-0 ticron. 16:00:52 Subcutaneous closure was completed with 3-0 vicryl. 16:03:58 Skin closure was completed with 5-0 monocryl. 16:06:55 Lt Chest incision was dressed with Mepilex dressing. 16:07:33 Parameters--Ventricular P/R Wave: 6.5mV. Current: .9mA; Threshold: .6V; Impedence: 1156OHMS. 16:07:55 Procedure ended.(Physican Out) 16:08:13 Parameters-- Generator: Mode: DDDR. Lower Rate: 60bpm. Upper Rate: 120bpm. 16:08:21 Fluoroscopy time 01.40 minutes. 16:08:30 Fluoroscopy dose: 0 mGy 16:08:30 Flurop Dose total: 0 16:08:35 Dose Area Product 1419.75 mGy/cm. 16:09:57 SYSTEM DID NOT RECORD mGy 16:10:06 Sharps counted by scrub and verified by R.N. 16:10:32 Post-op/insertion site Left Chest area dressed using a Mepilex dressing. 16:10:35 Post-procedure physical assessment completed. ASA score P 2 - A patient with mild systemic disease as per Chance Tavarez MD. 16:10:39 Post procedure rhythm: paced 16:10:42 Estimated blood loss: 10 ml 16:11:35 Post procedure instruction explained to patient.Patient verbalizes understanding. 16:11:36 Patient needs reinforcement of post procedure teaching. 16:12:13 Procedure type changed to Cath procedure, Diagnostic procedure, PPM/ICD, PPM Dual Implant, Sedation Charges, Moderate Sedation up to 30 minutes 16:12:26 Procedure and supply charges have been captured, reviewed, submitted and are correct. 16:12:29 Procedure Complication : No complications 16:12:30 Vital chart was stopped 16:12:33 Operative report dictated upon procedure completion. 16:12:33 See physician's report for complete and final results. 16:12:36 Report given to Pre/Post Procedure Room. 16:12:38 Patient transfered to Pre/Post Procedure Room with Bed. 16:12:41 Procedure ended. 16:12:41 Full Disclosure recording stopped 16:12:47 End room use (Document Last) 16:14:55 End room use (Document Last) 16:15:14 End room use (Document Last) Device Usage Item Name Manufacture Quantity Catalog Hospital Part Current Minima l Lot# / Number Charge Number Stock Stock Serial# Code 2-0 Ticron Ethicon 0 [id number] 12636 [id number] 5 Multipack ([id number]) 3-0 Vicryl Ethicon 1 [id number] 733186 952984 702725 5 Single Pack [id number] 5-0 Monocryl Ethicon 1 Y495G 973100 943223 397478 5 PS2 Y495G Cautery Tip Microtek 1 [id number] 230492 232548 116648 5 [employer] Cautery Microtek 1 [id number] 922064 18756 941408 5 [employer] Pencil Mepilex Cardinal 1 097438 897612 683588 004682 5 [facility] (631430) Immobilizer Cardinal 1 22-53050 085552 494802 616810 5 [facility] Medtronic Medtronic 1 4074-52 512440 063576 548367 5 [id number] 4-52 PPM EXP:12.03.19 Lead Medtronic Medtronic 1 4574-45 988496 765098 885340 5 [id number] 4574-45 PPM EXP:03/20/21 Lead Medtronic Medtronic 1 [id number] 800782 [id number] [id number] [id number] EXP:12/06/20 Generator [id number] Signature Audit [place] Stage Time Signature Unsigned Intra-Procedure 09/11/2019 Roseanne Cedeño 4:14:55 PM RT(R) Intra-Procedure 09/11/2019 Madelaine Cruz 4:15:14 PM RN Intra-Procedure 09/11/2019 Chance Law 4:15:59 PM [id number] [place] [address]
[~2019-09-11 11:20] MED LIST changes: +ELIQUIS5 MG PO; +GLUCOPHAGE1000 MG PO; +GLUCOTROL 5 MG T5 MG PO; +IBUPROFEN800 MG PO; +LEVOTHYROXINE100 MCG PO; +LEVOTHYROXINE150 MCG PO; +LIPITOR20 MG PO; +LOPRESSOR25 MG PO; +PEPCID AC20 MG PO
[2019-09-11] MEDS ORDERED: LISINOPRIL-HCT1 EAC8 PO (11:55)
[2019-09-11] MEDS ORDERED: AMIODARONE HCL200 MG PO (11:56)
[2019-09-11] MEDS ORDERED: MOBIC7.5 MG PO (11:57)
[2019-09-11] MEDS ORDERED: METOPROLOL TART50 MG PO (12:02)
[2019-09-11 12:16] VITALS: BP 140/95; Ht 188 cm; Wt 107.7 kg
[2019-09-11 12:24] LABS: HEMATOCRIT 41.4 % (42.0-54.0); HEMOGLOBIN 14.2 g/dL (13.5-17.5); MCH 32.9 pg (26.0-34.0); MCHC 34.3 g/dL (31.0-37.0); MCV 95.8 fL (80.0-100.0); MEAN PLATELET VOLUME 10.3 fL (7.4-10.4); RBC 4.32 10x6/uL (4.20-6.10); RDW 12.2 % (11.5-14.5); WBC 8.9 10x3/uL (4.8-10.8)
[2019-09-11 12:37] LABS: ANION GAP 15.6 mmol/L (8-16); CARBON DIOXIDE 23.3 mmol/L (21.0-32.0); CREATININE - SERUM 2.2 mg/dL (0.6-1.3); POTASSIUM - SERUM 4.9 mmol/L (3.5-5.1)
[2019-09-11 13:07] LABS: APTT 27.1 SECONDS (22.8-39.4)
[2019-09-11 13:09] LABS: INR 1.09 (0.85-1.17); PROTIME 13.8 SECONDS (11.6-15.0)
--- NOTE | 2019-09-11 16:25 | NUR ---
PT REC'D TO ROOM 3 VIA STRETCHER FROM PROFILE TRIMMER. MONITORS ESTAB. PT ORIENTED. SEE SUPERVISOR RECEIVING AND PROCESSING. ALARMS ON AND C/L IN REACH.
--- NOTE | 2019-09-11 16:40 | NUR ---
L CHEST SITE C/D/I, VSS. PT RESTING QUIETLY. ALARMS ON AND C/L IN REACH.
--- NOTE | 2019-09-11 17:10 | NUR ---
PT SITTING UP IN BED, EATING SANDWICH. VSS. CM - AFIB. PT DENIES PAIN OR NEEDS.
--- NOTE | 2019-09-11 17:25 | NUR ---
VSS. L CHEST SITE C/D/I. PT WATCHING TV. DENIES NEEDS. ALARMS ON AND C/L IN REACH.
--- NOTE | 2019-09-11 17:55 | NUR ---
CM - AFIB, VSS. L CHEST SITE C/D/I. PT DENIES PAIN OR NEEDS.
--- NOTE | 2019-09-11 18:00 | NUR ---
PIV IV D/C'D INTACT, DSG APPLIED AND PT UP TO GET DRESSED.
--- NOTE | 2019-09-11 18:05 | NUR ---
DISCHARGE INSTRUCTIONS REVIEWED WITH PT.
--- NOTE | 2019-09-11 18:10 | NUR ---
PT DC'D TO PRIVATE VEHICLE WITH L ARM IN SLING, ALL PAPERWORK AND BELONGINGS.
--- NOTE | 2019-09-12 11:14 | OP ---
PATIENT NAME: ELVIN FUENTES MEDICAL RECORD: [id number] :[birth year] LOCATION:D.CAT ADMISSION DATE: SURGEON: BRANDO SAM MD DATE OF OPERATION: 09/11/2019 PROCEDURE: Lead portion of permanent pacer placement. INDICATION: Atrial fibrillation, sick sinus syndrome with pauses greater than 5 seconds. SURGEON: Willie Deleon MD (JJ) DESCRIPTION OF PROCEDURE: After left subclavian was cannulated via modified Seldinger technique under fluoroscopic guidance, the RV lead was placed in the RV apex without difficulty. After adequate R waves and thresholds were obtained, again under fluoroscopic guidance, I placed the right atrial lead in the right atrial appendage without difficulty. After adequate fibrillatory waves and impedance was measured, leads were attached to appropriate poles of the generator and the pocket was closed via Dr. Deleon. IMPRESSION: Successful lead portion of permanent pacemaker placement on Elvin Fuentes. ESTIMATED BLOOD LOSS: Minimal. DISPOSITION: To the floor, stable. TRANSINT:[id number] Voice Confirmation ID: [id number] DOCUMENT ID: [id number] BRANDO SAM MD at 1114 CC: [id number] DICTATION DATE: 09/11/19 1606 SEMICONDUCTOR LAB TECHNICIAN: 09/12/19 0256 DEP CLI 09/11/19 [id number] [place] [address]
== END 2019-09-11 18:10 | disposition home or self-care (01) ==
LOC: D.CATH 11:20
PROVIDERS: ATTEND Internal Medicine Interventional Cardiology
DX: I49.5 Sick sinus syndrome (principal); I48.91 Unspecified atrial fibrillation; I10 Essential (primary) hypertension; R00.0 Tachycardia, unspecified; E11.9 Type 2 diabetes mellitus without complications; Z72.0 Tobacco use; Z79.84 Long term (current) use of oral hypoglycemic drugs

== ENCOUNTER 2019-10-11 06:11 | Outpatient (CLI) | payer MEDICARE, BC ==
[~2019-10-11] VITALS: Ht 188 cm; Wt 111.4 kg
--- NOTE | ~2019-10-11 | HEMODYNAMI ---
PATIENT:ELVIN FUENTES MEDICAL RECORD: [id number] : 48 LOCATION:[facility] ADMISSION DATE: 10/11/19 Generatedon:10/11/20198:39 Patient name: ELVIN FUENTES Patient #: [id number] SSN: : [birth year] Date of study: 10/11/2019 Page: Of Hemodynamic Procedure Report Patient Data Patient Demographics Procedure consent was obtained First Name: ELVIN Gender: Male Last Name: ALFREDO : 1950 [facility] Initial: E Age: 69 year(s) Patient #: [id number] Race: Unknown Ethnicity: or Additional ID: [id number] Contact details Address: [address] [place] [address] State: [place] City: [place] Zip code: [address] Past Medical History Allergies: No known allergies Admission Admission Data Admission Date: 10/11/2019 Admission Time: 6:11 Procedure Procedure Types Cath Procedure Diagnostic Procedure Cardioversion External Procedure Description Procedure Date Procedure Date: 10/11/2019 Procedure Start Time: 8:28 Procedure End Time: 8:36 Procedure Staff Name Function Israel Dominguez MD Performing Physician Nickie Leon RN Nurse Brijesh Muhammad RT Monitor Roseanne Cedeño RT Monitor Howie White Jr, CRNA Additional personnel Procedure Medications Medication Administration Route Dosage Oxygen etCO2 Nasal cannula 2 l/min Refer to Anesthesia Notes for Sedation Medications Hemodynamics Rest Heart Rate: 84 (bpm) Snapshots Pre Cath Intra NCS Post Cath Vital Signs Time Heart Resp SPO2 etCO2 NIBP (mmHg) Rhythm Pain Sedation Rate (ipm) (%) (mmHg) Status Level (bpm) 8:23:39 83 14 98 0 136/91(118) A-Fib 0 (11) 10(A) , No pain 8:28:34 80 20 93 0 107/69(76) Paced 0 (11) 9(A) , No pain 8:32:41 80 20 98 29.9 116/73(91) Paced 0 (11) 10(A) , No pain 8:36:55 60 19 98 33 108/62(84) Paced 0 (11) 10(A) , No pain Medications Time Medication Route Dose Verified Delivered Reason Notes Effectiven ess by by 8:20:28 Oxygen etCO2 2 Israel Chanceie used for Nasal l/min Alberto Leon RN procedure cannula 8:26:32 Refer to Israel Fu Anesthesia Alberto Leon RN Notes for Sedation Medications Procedure Log Time Note 8:04:08 Informed consent obtained and on chart 8:06:26 Procedure Status Cardioversion. 8:06:27 Time tracking: Regular hours (M-F 7:00 - 5:00) 8:06:30 Plan of Care:Hemodynamics will remain stable., Cardiac rhythm will remain stable., Comfort level will be maintained., Respiratory function will remain adequate., Patient/ family verbilizes understanding of procedure., Procedure tolerated without complication., Recovers from procedure without complications.. 8:11:10 H&P Date Dictated: 10/08/2019 Within 30 days and on chart., H&P Addendum completed by physician on day of procedure. (MUST COMPLETE FOR ALL OUTPATIENTS). 8:20:28 Oxygen 2 l/min etCO2 Nasal cannula was administered by Nickie Leon RN; used for procedure; Verbal order read back and verified. 8:21:50 Patient received from Pre/Post Procedure Room to CCL 2 Alert and oriented. Tansferred to table in Supine position. 8:21:52 Warm blankets applied, and funmi hugger turned on for patient comfort. 8:21:53 Correct patient and procedure confirmed by team. 8:21:55 ECG and BP/O2 sat monitors applied to patient. 8:22:19 Vital chart was started 8:23:03 Baseline sample Acquired. 8:23:22 Rhythm: atrial flutter 8:23:27 Full Disclosure recording started 8:23:30 Pre-procedure instructions explained to patient. 8:23:58 Pre-op teaching completed and patient verbalized understanding. 8:24:02 Family unavailable. 8:24:05 Patient NPO since Midnight. 8:24:20 Patient allergic to No known allergies 8:24:31 Is patient on blood thinner?Yes 8:24:54 Patient diabetic? No. 8:24:58 ----Pre-sedation anethsthesia assessment.---- 8:25:35 Previous problem with sedation/anesthesia? No ? 8:25:37 Snore? Yes 8:25:38 Sleep apnea? Yes 8:25:42 Deviated septum? No 8:25:46 Opens mouth fully? Yes 8:25:50 Sticks out tongue? Yes 8:25:53 Airway obstruction? No ? 8:25:58 Dentures? No ? 8:26:14 IV patent on arrival in left forearm with 0.9% NaCl at [facility]. 8:26:32 Refer to Anesthesia Notes for Sedation Medications was administered by Nickie Leon RN; ; Verbal order read back and verified. 8:26:38 Alarms reviewed by R. N. 8:26:39 Sharps counted by scrub and verified by R.N. 8:27:00 Israel Dominguez MD present and monitoring patient for TIVA. 8:27:10 Sedation plan: TIVA Medication:Propofol 8:27:10 --------ALL STOP TIME OUT------ 8:27:10 Final Timeout: patient, procedure, and site verified with staff and physician. All members of the team are in agreement. 8:27:10 Fire Safety Assessment: C--Open oxygen or nitrous oxide is being used. 8:28:20 Howie White Jr, CRNA present and monitoring patient for TIVA. 8:28:23 Procedure started. 8:28:25 ------Cardioversion------ 8:28:26 Quick combo pads placed on patients chest and back. 8:28:33 Defibrillator synced and charged to 200 Joules. 8:28:34 Shock delivered. 8:28:41 Patient cardioverted to paced. 8:32:03 Procedure ended.(Physican Out) 8:33:32 Post-procedure physical assessment completed. ASA score P 2 - A patient with mild systemic disease as per Israel Dominguez MD. 8:35:07 Operative report dictated upon procedure completion. 8:35:09 See physician's report for complete and final results. 8:35:14 Patient needs reinforcement of post procedure teaching. 8:35:16 Procedure and supply charges have been captured, reviewed, submitted and are correct. 8:36:09 Vital chart was stopped 8:36:13 Report given to Pre/Post Procedure Room. 8:36:17 Patient transfered to Pre/Post Procedure Room with Stretcher. 8:36:23 Procedure ended. 8:36:23 Full Disclosure recording stopped Signature Audit [place] Stage Time Signature Unsigned Intra-Procedure 10/11/2019 Brijesh Muhammad 8:37:33 AM RT(R) (CV); Nickie Leon RN; Israel Dominguez MD Signatures Performing Physician : Signature : Israel Dominguez MD Date : Time : Nurse : Nickie Leon RN Signature : Date : Time : Monitor : Brijesh Muhammad RT Signature : Date : Time : Monitor : Roseanneeva Cedeño Signature : RT Date : Time : [address] [place] [address]
[~2019-10-11 06:11] MED LIST changes: +AMIODARONE HCL200 MG PO; +LISINOPRIL-HCT1 EAC8 PO; +METOPROLOL TART50 MG PO
[2019-10-11] MEDS ORDERED: HYDROCODON-ACE1 EA10 PO (06:51)
[2019-10-11 07:11] VITALS: BP 122/77; Ht 188 cm; Wt 111.4 kg
[2019-10-11 07:17] LABS: HEMATOCRIT 37.2 % (42.0-54.0); HEMOGLOBIN 12.8 g/dL (13.5-17.5); MCH 32.2 pg (26.0-34.0); MCHC 34.4 g/dL (31.0-37.0); MCV 93.7 fL (80.0-100.0); MEAN PLATELET VOLUME 10.1 fL (7.4-10.4); PLATELET COUNT 322 10x3/uL (130-400); RBC 3.97 10x6/uL (4.20-6.10); RDW 12.4 % (11.5-14.5); WBC 11.8 10x3/uL (4.8-10.8)
[2019-10-11 07:40] LABS: INR 1.41 (0.85-1.17); PROTIME 17.1 SECONDS (11.6-15.0)
[2019-10-11 08:18] LABS: ANION GAP 11.9 mmol/L (8-16); CALCIUM 9.3 mg/dL (8.5-10.1); CARBON DIOXIDE 26.7 mmol/L (21.0-32.0); CREATININE - SERUM 1.9 mg/dL (0.6-1.3); POTASSIUM - SERUM 4.6 mmol/L (3.5-5.1)
--- NOTE | 2019-10-11 08:44 | NUR ---
PT ARRIVED BY BED. PLACED ON MONITORS. ASSESSMENT COMPLETED. VSS AT THIS TIME. CALL LIGHT WITHIN REACH. PT DENIES PAIN.
--- NOTE | 2019-10-11 09:00 | NUR ---
PT SITTING UP IN BED. ALERT. WATCHING TELEVISION. VSS. PT STILL IN A-PACED RHYHTM. HR 60. PT SET UP WITH SANDWICH AND DRINK. DENIES NAUSEA/PAIN AT THIS TIME.
--- NOTE | 2019-10-11 09:36 | NUR ---
PT ATRAIL-PACED. RATE 60. VSS. PIV D/C'D WITH CATH TIP INTACT. TOLERATED WELL. DISCUSSED DISCHARGE INSTRUCTIONS WITH PT. HE VOICED UNDERSTANDING. PT INSTRUCTED TO GET UP AND DRESSED AT THIS TIME. CALL LIGHT WITHIN REACH. NO ASSISTANCE NEEDED.
--- NOTE | 2019-10-11 09:45 | NUR ---
PT AMBULATED TO RESTROOM. VOIDED WITHOUT DIFFICULTY. STEADY GAIT NOTED. TAKEN DOWN TO VEHICLE BY WHEELCHAIR. NO S/S OF DISTRESS NOTED. ALL BELONGINGS AND PAPERWORK IN HAND.
[2019-10-11 10:02] LABS: ANISOCYTOSIS OCC; LYMPHOCYTES 17 % (15-50); MONOCYTES 9 % (2-11); NEUTROPHILS 73 % (40-80); PLATELET ESTIMATE NORMAL
== END 2019-10-11 09:45 | disposition home or self-care (01) ==
LOC: D.CATH 06:11
PROVIDERS: ATTEND Internal Medicine Cardiovascular Disease
DX: I48.91 Unspecified atrial fibrillation (principal); E11.9 Type 2 diabetes mellitus without complications; I10 Essential (primary) hypertension; Z95.0 Presence of cardiac pacemaker; Z72.0 Tobacco use; Z79.84 Long term (current) use of oral hypoglycemic drugs

== ENCOUNTER → 2020-08-29 08:51 | Outpatient (CLI) | payer MEDICARE, BC ==
[2019-10-11 07:11] VITALS: BMI 31.5
[~2020-08-29 08:51] MED LIST changes: +HYDROCODON-ACE1 EA10 PO
== END | disposition home or self-care (01) ==
LOC: D.US
PROVIDERS: ATTEND Family Medicine
DX: H34.10 Central retinal artery occlusion, unspecified eye (principal)

== ENCOUNTER → 2020-09-25 08:38 | Outpatient (CLI) | payer MEDICARE, BC ==
[2019-10-11 07:11] VITALS: BMI 31.5
== END | disposition home or self-care (01) ==
LOC: D.HCCECHO 08:30
PROVIDERS: ATTEND Internal Medicine Cardiovascular Disease
DX: I48.91 Unspecified atrial fibrillation (principal)